=== PATIENT | female | born 1970 | race Caucasian/White ===

== ENCOUNTER → 2024-03-20 | Day surgery (SDC) | payer OTHER ==
[~2024-03-20] MED LIST: LIDOCAINE HCL 2% LOCAL INJ 5 ML SDV VIAL INJ ONE; LIPITOR10 MG PO; PROPOFOL IV EMULSION 10 MG/ML 50 ML VIAL IV ONE
[2024-03-20] MEDS: LACTATED RINGER'S 1,000 ML ONE (10:29)
[2024-03-20 12:50] VITALS: BP 103/70; PULSE 78; RESP 16; O2SAT 98
== END | disposition home or self-care (01) ==
LOC: OR 10:07
PROVIDERS: ATTEND Internal Medicine Gastroenterology
DX: K62.5 Hemorrhage of anus and rectum (principal); D12.0 Benign neoplasm of cecum; D12.2 Benign neoplasm of ascending colon; K59.00 Constipation, unspecified; K64.8 Other hemorrhoids; E78.5 Hyperlipidemia, unspecified; E66.01 Morbid (severe) obesity due to excess calories; Z79.899 Other long term (current) drug therapy; Z86.19 Personal history of other infectious and parasitic diseases
CPT/HCPCS: 45385; 93005; J2001; J2704; J7121; 45378